=== PATIENT | male | born 1995 | race Caucasian/White ===

== ENCOUNTER 2019-07-01 10:49 | Emergency (ER) | payer OTHER ==
[2019-07-01 10:53] VITALS: TEMP 97.8
[2019-07-01] MEDS ORDERED: ONDANSETRON ODT 4 MG TAB PO STA (11:07)
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
[2019-07-01] MEDS ORDERED: IBUPROFEN 600 MG TAB PO STA (11:49)
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
[2019-07-01 12:29] VITALS: BP 138/80; PULSE 60; RESP 16
== END 2019-07-01 12:25 | disposition home or self-care (01) ==
LOC: EC 10:49
DX: S16.1XXA Strain of muscle, fascia and tendon at neck level, initial encounter (principal); S09.90XA Unspecified injury of head, initial encounter; V48.5XXA Car driver injured in noncollision transport accident in traffic accident, initial encounter; Y92.410 Unspecified street and highway as the place of occurrence of the external cause; Y93.89 Activity, other specified
CPT/HCPCS: 70450; 72125; 99284

== ENCOUNTER 2020-04-10 17:46 | Emergency (ER) | payer OTHER, BC ==
[2020-04-10 17:54] VITALS: BP 158/93; PULSE 65; RESP 18; TEMP 98.2
[2020-04-10] MEDS ORDERED: traMADol 50 MG STARTER PACK 3 TAB BTL PO STA (18:30)
[2020-04-10] MEDS ORDERED: traMADol 50 MG TAB PO STA (18:30)
[2020-04-10] MEDS ORDERED: dexAMETHasone 4 MG TAB PO STA (18:30)
[2020-04-10] MEDS ORDERED: LIDOCAINE 5% PATCH TOPICAL STA (18:30)
[2020-04-10] MEDS ORDERED: KETOROLAC 60 MG/2 ML VIAL IM STA (18:30)
--- NOTE | 2020-04-10 18:31 | ED ---
Back Pain HPI - General Chief Complaint: Back Pain/Injury Stated Complaint: back pain Time Seen by Provider: 04/10/20 18:00 Source: patient, RN notes reviewed, old records reviewed Limitations: no limitations - History of Present Illness Initial Comments: This is a 24-year-old male DF for evaluation of back pain 10 year history of back pain with no acute injury. History was will follow up with vascular years ago no neurological complaints no loss of bowel or bladder no fevers. MD Complaint: back pain, back injury -: days(s) Similar Symptoms Previously: Yes Place: home Radiation: none Severity: moderate Severity scale (1-10): 6 Quality: sharp, aching Consistency: constant Improves With: immobilization Worsens With: movement Context: while lifting, turning/twisting, bending Associated Symptoms: denies other symptoms - Related Data Home Medications Medication Instructions Recorded Confirmed No Known Home Medications 07/01/19 07/01/19 Allergies Allergy/AdvReac Type Severity Reaction Status Date / Time No Known Allergies Allergy Verified 04/10/20 17:54 Review of Systems ROS Statement: Those systems with pertinent positive or pertinent negative responses have been documented in the HPI. ROS Other: All systems not noted in ROS Statement are negative. Past Medical History Past Medical History: No Reported History History of Any Multi-Drug Resistant Organisms: None Reported Past Surgical History: No Surgical Hx Reported Past Psychological History: No Psychological Hx Reported Smoking Status: Never smoker Past Alcohol Use History: Occasional Past Drug Use History: None Reported General Exam Limitations: no limitations General appearance: alert, in no apparent distress Head exam: Present: atraumatic, normocephalic, normal inspection Eye exam: Present: normal appearance, PERRL, EOMI. Absent: scleral icterus, conjunctival injection, periorbital swelling ENT exam: Present: normal exam, mucous membranes moist Neck exam: Present: normal inspection. Absent: tenderness, meningismus, lymphadenopathy Respiratory exam: Present: normal lung sounds bilaterally. Absent: respiratory distress, wheezes, rales, rhonchi, stridor Cardiovascular Exam: Present: regular rate, normal rhythm, normal heart sounds. Absent: systolic murmur, diastolic murmur, rubs, gallop, clicks GI/Abdominal exam: Present: soft, normal bowel sounds. Absent: distended, tenderness, guarding, rebound, rigid Extremities exam: Present: normal inspection, full ROM, normal capillary refill. Absent: tenderness, pedal edema, joint swelling, calf tenderness Back exam: Present: normal inspection Neurological exam: Present: alert, oriented X3, CN II-XII intact Psychiatric exam: Present: normal affect, normal mood Skin exam: Present: warm, dry, intact, normal color. Absent: rash Course Vital Signs 04/10/20 17:52 Temperature 98.2 F Pulse Rate 65 Respiratory 18 Rate Blood Pressure 158/93 O2 Sat by Pulse 100 Oximetry - Reevaluation(s) Reevaluation #1: medical record is reviewed patient symptoms siginficantly improved informed patient of results, questions answered and ok for discharge, Medical Decision Making - Medical Decision Making 24 male DF for evaluation of back pain. Patient has pain control here in the ER will be discharged Disposition Clinical Impression: Mid back pain, Mechanical back pain Disposition: HOME SELF-CARE Condition: Good Instructions (If sedation given, give patient instructions): Acute Low Back Pain (ED) Is patient prescribed a controlled substance at d/c from ED?: No Referrals: None,Stated [Primary Care Provider] - 1-2 days
== END 2020-04-10 19:05 | disposition home or self-care (01) ==
LOC: EC 17:46
DX: M54.6 Pain in thoracic spine (principal); X50.1XXA Overexertion from prolonged static or awkward postures, initial encounter
CPT/HCPCS: 99284; 96372; J8540; J1885